=== PATIENT | female | born 2000 | race Caucasian/White ===

== ENCOUNTER 2024-12-27 16:09 | Outpatient (CLI) | payer OTHER, SELFPAY ==
--- NOTE | ~2024-12-27 | XR_ITS ---
XR knee RT 3V 12/27/2024 16:29 Indication: Right knee pain for 2 months Procedure: 3 views right knee Comparison: No prior studies for comparison. Findings: There is irregular vertically oriented lucency in the anterior proximal aspect of the tibia on the lateral view. This is not confirmed on the AP or oblique view. No joint effusion. Impression: 1: Irregular vertical lucency anterior aspect of the tibia on the lateral view only. Nondisplaced fra cture not excluded. Recommend further evaluation with CT or MRI of the knee. Reviewed, dictated and finalized at location A. Impression: 1: Irregular vertical lucency anterior aspect of the tibia on the lateral view only. Nondisplaced fracture not excluded. Recommend further evaluation with CT or MRI of the knee.
--- OUTSIDE RECORDS SUMMARY | 2024-12-27 16:13 | XMS_ITS | Data Portability ---
Author Organization [place] [employer], Main Office Address [address] [place] [address] Care Team Providers Care Information Technology Administrator Name Role Phone KAPIL ALBA Primary Care Provider KAPIL ALBA Referring Provider [phone] Assessment No assessment recorded. Plan of Treatment Reminders Order Date Submit Date Provider Last Modified By Organization Details Last Modified Time Details Appointments None recorded. Lab lipid panel, serum [address] (Lab), [address] [place] [address], [id number], 5 09:15:09 CMP, serum or plasma [address] (Lab), [address] [place] [address], [id number], 5 09:15:09 HbA1c (hemoglobi n A1c), blood [address] (Lab), [address] [place] [address], [address], 5 09:15:08 vitamin D, 25-hydroxy , total, serum [address] (Lab), [address] [place] [address], [address], 5 09:15:08 vitamin B12 + folate, serum or blood [address] (Lab), [address] [place] [address], [address], 5 09:15:08 CBC w/ auto diff [address] (Lab), [facility] [address], [place], [address], 5 09:15:08 TSH + free T4, serum [address] (Lab), [facility] [address], [place], [address], 5 09:15:08 Referral orthopedic surgeon referral - Please call patient to schedule an appointmen t. Thank you. 2024 025 [facility], [address], [place], [address], 14:29:25 Procedures None recorded. Surgeries None recorded. Imaging None recorded. Medication Orders None recorded. Patient TargetsNo targets recorded. Patient InstructionsNo instructions recorded. Reason for Referral Orthopedic Surgeon Referral for Pain of right knee joint Please call patient to schedule an appointment. Thank you. Referring Physician: Kapil Alba, Family Medicine, Encounter Date: 12/07/2024 Problems Name Problem SNOMED Code Status Onset Date Resolution Date Notes Provider Name and Address Organization Details Recorded Time Pain of right knee joint 236733662438778 Active 2024 REMIGIO Moreno [address], [place], [address], [employer] 14:42:26 Fatigue 85691764 Active 2024 REMIGIO Moreno [address], [place], [address], [employer] 14:47:21 Obese class I 627406625744380 Active 2024 REMIGIO Moreno [address], [place], [address], [employer] 14:48:50 Problem Notes None recorded. Medical Equipment None Reported. Allergies No known drug allergies Medications Name Sig Start Date Stop Date Status Note LastModified by Organization Details LastModified Time Zyrtec 10 mg tablet Take 1 tablet every day by oral route as directed. 024 active Not Available Not Available Not Avai lable Vitals Date Recorded Body height Body mass index (BMI) Body weight Body temperature Oxygen saturation Oxygen saturation in Arterial blood by Pulse oximetry Heart rate Systolic blood pressure Diastolic blood pressure Provider Name and Address Organization Details Last Updated DateTime 167.64 cm 33.8 kg/m2 11604.5 1 g 98.2 [degF] 98 % 98 % 90 /min 120 mm[Hg] 70 mm[Hg] Yaneli Lujan RN [facility] [employer] [facility] 14:14:47 Social History Question Answer Notes LastModified by [employer] Details LastModified Time Tobacco Smoking Status Never Smoker Yaneli Lujan RN [facility], [facility] [employer] [facility] 12/07/2024 14:21:09 What Is Your Level Of Caffeine Consumption? Occasional 60 Mg Of Caffeine Per Day [email or web address] Information not available 12/07/2024 Sex: Unknown Functional Status Question Answer Note LastModified by [employer] Details LastModified Time Do you use any illicit or recreational drugs? No [email or web address] Information not available 12/07/2024 Do you or have you ever used any other forms of tobacco or nicotine? No Information not available 12/07/2024 What is your level of alcohol consumption? None [email or web address] Information not available 12/07/2024 Mental Status None recorded. Family History Relationship Description Onset Age of this Age Resolved Age Notes LastModified by Organization Details LastModified Time Father Palpitations 16 [email or web address] Not tika ilable 12/07/2024 14:16:51 Father Diabetes mellitus [email or web address] Not available 12/07 14:18:00 Mother Essential hypertension [email or web address] Not available 14:17:33 Paternal Grandfather Renal cell carcinoma 68 [email or web address] Not available 12/07 14:18:49 Paternal Grandmother Malignant neoplasm of lung 63 64 [email or web address] Not available 12/07 14:19:49 Medical History No medical history recorded. Gynecological HistoryNo gynecological history recorded. Obstetrics History GPAL:G 0 P 0 0 0 0 Immunizations Vaccine Type Date Status Note Provider Nam e and Address Organization Details Recorded Time Hep B, adult 12/06/2024 completed Shirin De Souza RN [facility], [facility] [employer] [facility] 12/11/2024 13:20:28 Past Encounters Encounter ID Performer Location Encounter Start Date Encounter Closed Date Diagnosis/Indication Diagnosis SNOMED-CT Code Diagnosis ICD10 Code Diagnosis Note [id number] REMIGIO Moreno [facility] [address] [place] [phone] 12/07/2024 14:01:04 12/13/2024 16:14:06 General examination of patient 497975904 Z00.01 [facility] reviewedDi scussed diet and exercisePa tient questions answered Hepatitis B non-immune 875189529 Z78.9 Has completed 2 vaccines, needs 3rd and final Pain of ri ght knee joint 4862237202 [address]3966 M25.561 Positional shooting pains x 6 weeks Fatigue 01891299 R53.82 Family his tory of diabetes mellitus 242783886 Z83.3 Obese class I 2159295246 23450 E66.811 Health Concerns Section Related Observation LastModified by Organization Detai ls LastModified Time None Recorded Concern Status LastModified by Organization Details LastModified Time None Recorded Advance Directives Directive None Recorded Payers Encounter Date Sequence Insurance Name Policy Number Policy Self Covered Member ID Self Member ID Guarantor Name 12/07/2024 1 [facility] [id number] Yari Hendrix [id number] Yari Hendrix Notes Date Note Type Note Provider Name and Address Organization Details Recorded Time 5 text/html Yari Hendrix is a 24 year old female patient here today to establish care. 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 Concerns with right knee pain. She notes that she has no pain with walking but does have pain with going up and down stairs. She notes she gets quick stabbing pains. This occurred 6 weeks ago and she is not feeling better. Flu shot: OVID vaccines: x3Tdap: 2021HPV completedNegative Hep B titers, has had 2/3 vaccinesWWE: 2020Mammogram not indicatedColonoscopy not indicated REMIGIO Moreno [address], [facility] [address], [place], [address], [place] [facility] [place] [facility] 12/07/2024 15:31:16 OBGyn Episode No OBEpisode recorded.
== END 2024-12-27 16:10 | disposition home or self-care (01) ==
PROVIDERS: Visit Provider Orthopaedic Surgery
DX: M25.561 Pain in right knee (principal)
CPT/HCPCS: 73562

== ENCOUNTER 2025-01-02 10:50 | Outpatient (CLI) | payer OTHER, SELFPAY ==
--- NOTE | ~2025-01-02 | MR_ITS ---
MRI of the right knee Clinical history: Internal derangement Technique: Coronal proton density and proton density-weighted images, sagittal proton-density and T2 fat-sat images, and axial proton-density fat-saturated images were acquired. Findings: Anterior and posterior cruciate ligaments are intact. Medial collateral ligament and the la teral collateral ligament complex are intact. Popliteus tendon are intact. Medial and lateral menisci are intact, without evidence of tear. Articular cartilage is well preserved throughout the knee. Bone marrow signals are unremarkable. Extensor mechanism is intact. No significant joint effusion or Cates's cyst. Impression: No significant abnormality seen. Reviewed, dictated and finalized at location . Impression: No significant abnormality seen.
== END 2025-01-02 10:51 | disposition home or self-care (01) ==
LOC: GOSHIMG 10:50
PROVIDERS: PCP Orthopaedic Surgery; Visit Provider Orthopaedic Surgery
DX: M23.91 Unspecified internal derangement of right knee (principal)
CPT/HCPCS: 73721

== ENCOUNTER 2025-02-28 07:53 | Outpatient (CLI) | payer OTHER, SELFPAY ==
--- OUTSIDE RECORDS SUMMARY | 2025-02-28 07:57 | XMS_ITS | Clinical Summary ---
Author Organization [facility] Address [address] [place] [address] Care Team Providers Care Law Office Assistant Name Role Phone None, Provider MD Primary Care Provider Unavaila ble Allergies No known active allergies Medications cephALEXin 500 MG capsule 01/25/2022 Active Active Problems No known active problems Family History Medical History Relation Comments Diabetes Father Heart Disease Father Heart Disease Mother Hypertension Mother Relation Status Comments Father Alive Mother Alive Social History Tobacco Use Types Packs/Day Years Used Date Smoking Tobacco: Never Smokeless Tobacco: Never Alcohol Use Standard Drinks/Week Comments Never 0 (1 standard drink = 0.6 oz pur e alcohol) Comments No Sex and Gender Information Value Date Recorded Sex Assigned at Not on file Legal Sex Female 11:25 PM [employer] Gender Identity Not on file Sexual Orientation Not on file Last Filed Vital Signs Vital Sign Reading Time Taken Comments Blood Pressure 125/91 01/29/2022 11:00 AM CDT Pulse 96 01/29/2022 10:28 AM CDT Temperature 36.6 C (97.8 F) 01/29/2022 10:28 AM CDT Respiratory Rate 16 01/29/2022 10:28 AM CDT Oxygen Saturation 100% 01/29/2022 11:30 AM CDT Inhaled Oxygen Concentration - - Weight 86.2 kg (190 lb) 01/29/2022 10:28 AM CDT Height 167.6 cm (5' 6) 01/29/2022 10:28 AM CDT Body Mass Index 30.67 01/29/2022 10:28 AM CDT Plan of Treatment Health Maintenance Due Date Last Done Comments Annual Physical 2003 HPV Vaccines (2 - 3-dose series) 06/16/2015 05/19/2015 Hepatitis C 2018 DTaP, Tdap and Td Vaccines (7 - Td or Tdap) 03/27/2022 03/27/2012, 2006, 09/22/2001, Additional history exists COVID-19 Vaccine (3 - season) 2024 11/18/2021, 10/23/2020 Cervical Cancer Screening Pap Smear (Age 21 to 29) Every 3 Years 11/11/2025 11/11/2022 Cervical Cancer Screening 11/11/2025 Hepatitis B Vaccines Completed 09/22/2001, 2000, 2000 Meningococcal Vaccine Completed 05/16/2018, 012 Chlamydia Screening Females ages 16-24 Discontinued 11/11/2022 Meningococcal B Vaccine Aged Out No l onger eligible based on patient's age to complete this topic Pneumococcal Vaccine: Pediatrics (0 to 5 Years) and At-Risk Patients (6 to 49 Years) Aged Out No longer eligible based on patient's age to complete this topic RSV Immunizations Under 20 Months Aged Out No longer eligible based on patient's age to complete this topic Procedures Procedure Name Priority Date/Time Associated Diagnosis Comments CHLAMYDIA GC RNA Routine 11/11/2022 1:50 PM CDT Encounter for screening for infections with a predominantly sexual mode of transmission CYTOPATH CERV/VAG THIN LAYER Routine 11/11/2022 9:11 AM CDT from Last 3 Months or Most Recently Relevant to Health Maintenance Results * CHLAMYDIA GC RNA (11/11/2022 1:50 PM CDT) SPECIMEN CERVICAL 11/11/2022 4:07 PM CDT [facility] CHLAMYDIA RNA TMA NEGATIVE NEGATIVE 023 1:34 PM CDT [facility] Comment:PERFORMED BY NUCLEIC ACID AMPLIFICATION N.GONORRHOEAE RNA TMA NEGATIVE NEGATIVE 11/12/2022 1:34 PM CDT [facility] Comment:PERFORMED BY NUCLEIC ACID AMPLIFICATION CERVICAL 11/11/2022 1:50 PM CDT us Delilah Miller MD MICROBIOLOGY - GENERAL ORDERABLE S Final Result [facility] [address] [place] [address], [facility] [address] [place] [address], [id number] * Cytopath Cerv/Vag Thin Layer (11/11/2022 9:11 AM CDT) THIN PREP PAP [facility] [address] [place] [address] Department of Pathology Pathology Report CERVICAL/VAGINAL PAP SMEAR REPORT Name: YARI HENDRIX Age: 10 2000 (Age: 22) Location: [facility] Sex: F Collected Date: 11/11/2022 [facility] #: [id number] Date Received: 11/15/2022 Date Reported: 11/15/2022 Provider: DELILAH MILLER MD [facility] KALINA RASMUSSEN MD INTERPRETATION CERVICAL/ENDOCERVI JACKSON: SATISFACTORY FOR EVALUATION. ENDOCERVICAL/TRANS FORMATION ZONE COMPONENT PRESENT. NEGATIVE FOR INTRAEPITHELIAL LESION OR MALIGNANCY. Electronically Signed Out By HECTOR MORRIS(ASCP) CLINICAL HISTORY Z11.3 PAP AND TITLE I PARAPROFESSIONAL SURGICAL HISTORY-NA ThinPrep Pap Test with HR HPV testing in patient > 21 years with ASC-US diagnosis. Date of Last Menstrual Period: NA Menstrual Status: Regular SPECIMEN SUBMITTED CERVICAL/ENDOCERVI JACKSON Specimen Received:1 Thin Prep Vial, Image Assisted Pap (SMD) Please note: The Pap smear is not a diagnostic test. It is a screening test. Negative results on combined screening (Pap test and HPV-DNA) have a high negative predictive value (99.1-100 percent) for cervical cancer. The pap test is not effective in detecting cervical adenocarcinoma. [facility] 11/11/2022 9:11 AM CDT 11/15/2022 9:11 AM CDT Comment:CERVICAL/ENDOCERVICA L Delilah Miller MD PATHOLOGY/CYTOLOGY ORDERABLES Fi nal Result [facility] [address] [place] [address], from Last 3 Months or Most Recently Relevant to Health Maintenance Insurance Care Teams Law Office Assistant Relationship Specialty Start Date End Date None, Provider, PCP - General 01/29/22
[2025-02-28 08:10] LABS: Hematocrit 37.1 % (37.0-47.0); Hemoglobin 12.4 g/dL (12.0-15.0); Immature Granulocyte Percent A 0.4 % (0-0.5); Lymphocytes Absolute Auto 2.68 K/mm3 (0.9-3.2); Mean Corpuscular HGB Conc 33.4 g/dl (32-36); Mean Corpuscular Hemoglobin 30.2 pg (26-34); Mean Corpuscular Volume 90.5 fl (80-100); Nucleated Red Blood Cells Absolute Auto 0.000 K/mm3 (0.0-0.012); Nucleated Red Blood Cells Perc 0.0 % (0.0-0.2); Platelet Count Result 257 k/mm3 (150-375); Red Blood Count 4.10 M/mm3 (4.2-5.4); White Blood Count 8.6 K/mm3 (4.5-10.0)
[2025-02-28 08:25] LABS: Hemoglobin A1C 5.2 % (<5.7)
[2025-02-28 08:31] LABS: Alanine Aminotransferase 21 U/L (6-35); Albumin Level 4.1 g/dL (3.5-5.1); Alkaline Phosphatase 87 U/L (38-126); Anion Gap 7 mmol/L (4-12); Aspartate Amino Transferase 28 U/L (14-36); Bilirubin,Total 0.7 mg/dL (0.2-1.3); Blood Urea Nitrogen 15 mg/dL (7-17); Calcium 9.2 mg/dL (8.4-10.2); Carbon Dioxide 24 mmol/L (22-30); Chloride 108 mmol/L (98-107); Cholesterol 197 mg/dL (0-200); Estimated Glomerular Filt Rate > 60; Glucose 103 mg/dL (65-110); HDL Direct 54 mg/dL; Potassium 4.0 mmol/L (3.4-5.0); Sodium 139 mmol/L (137-145); Total Protein 7.4 g/dL (6.3-8.2); Triglycerides 66 mg/dL (<150)
[2025-02-28 09:00] LABS: Free T4 Free Thyroxine 1.15 ng/dL (0.78-2.19)
[2025-02-28 09:08] LABS: Thyroid Stimulating Hormone 2.780 uIU/mL (0.465-4.680)
[2025-02-28 09:44] LABS: Vitamin B12 561.0 pg/mL (239-931)
== END 2025-02-28 07:54 | disposition home or self-care (01) ==
DX: E66.811 Obesity, class 1 (principal); R53.82 Chronic fatigue, unspecified; Z83.3 Family history of diabetes mellitus
CPT/HCPCS: 36415; 80053; 80061; 82306; 82607; 82746; 83036; 84439; 84443; 85025

== ENCOUNTER 2025-02-28 14:45 | Outpatient (RCR) | payer OTHER, SELFPAY ==
--- NOTE | 2025-01-30 13:35 | OPREHPOC ---
Outpatient Therapy Plan of Care This is a Multidisciplinary Plan of Care that may contain components documented by all disciplines (PT, OT, and ST.) PT Problem 1 PT Problem #1 Knowledge Deficit PT Goal 1 Goal / Goal Update *independent with HEP Target Visit 8 PT Problem 2 PT Problem #2 Pain PT Goal 1 Goal / Goal Update 1* pt report pain rating of 3/10 at worst 2* pt report walking tolerance of 20 minutes Target Visit 8 PT Problem 3 PT Problem #3 Impaired Strength PT Goal 1 Goal / Goal Update increase strength of R hip and knee to 4+/5, for stability to knee joint PT Problem 4 PT Problem #4 Impaired Functional Mobility PT Goal 1 Goal / Goal Update 1* pt ambulate with good swing though on R LE and normal gait pattern 2* pt report she is NOT using the crutches for ambulation Target Visit 8 PT Problem 5 PT Problem #5 Impaired Flexibility PT Goal 1 Goal / Goal Update increase hamstring length to decrease pull on posterior knee joint: R supine SLR stretch to 65' Target Visit 8
--- NOTE | 2025-01-30 13:36 | PTOPEVAL1 ---
Assessment and note entered by Clary Pope, PT Evaluation Information Assessment Status Evaluation ICD-10 Condition Codes (PT) Pain in right knee M25.561 Onset October 19, 2024 Subjective Information playing with niece, going to squat down, twisted knee and landed onto R knee, then progressive worse pain, did not ease up; in November, worse pain and started using crutches had x ray with ? 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 MRI was negative. 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 LE functional scale rating of 39% limitation in activity level. She is not working due to knee pain. With the evaluation: R hip and knee ROM is WNL, with decreased strength of R LE; pain is increased in sitting and knee extension at end ROM . Skilled PT services are indicated for modalities to decrease pain, therapeutic exercises to increase strength and education for HEP, pain control and mobility/gait pattern. Plan of Care Interventions Electrical Stimulation,Hot Pack/Cold Pack,Manual Therapy,Neuro Re-education,Patient/Caregiver Education,Therapeutic Activities,Therapeutic Exercise,Ultrasound,Other Other Interventions taping PT Services Indicated Yes Treatment Frequency and 1-2x/wk for 8 visits Duration These treatments will address the objective and functional deficits as defined above. The patient will be advanced safely and appropriately in order for the patient to progress towards his/her prior level of function. Additional exercises will be introduced and as well as a comprehensive home exercise program upon discharge, if needed, ?to ensure carryover of functional gains achieved in the clinic. This treatment plan has been reviewed and agreement upon by the patient.
--- NOTE | 2025-01-30 13:50 | PCPTNOTE ---
pt was 10 minutes late for initial eval.
--- NOTE | 2025-02-22 15:19 | PCPTNOTE ---
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
--- NOTE | 2025-02-28 15:28 | OPREHPOC ---
Outpatient Therapy Plan of Care This is a Multidisciplinary Plan of Care that may contain components documented by all disciplines (PT, OT, and ST.) PT Problem 1 PT Problem #1 Knowledge Deficit PT Goal 1 Goal / Goal Update *independent with HEP 02-28-25 d/c goal met Target Visit 8 Progress Met PT Problem 2 PT Problem #2 Pain PT Goal 1 Goal / Goal Update 1* pt report pain rating of 3/10 at worst 2* pt report walking tolerance of 20 minutes 02-28-25 d/c goals met Target Visit 8 Progress Met PT Problem 3 PT Problem #3 Impaired Strength PT Goal 1 Goal / Goal Update increase strength of R hip and knee to 4+/5, for stability to knee joint 02-28-25 d/c goal met Progress Met PT Problem 4 PT Problem #4 Impaired Functional Mobility PT Goal 1 Goal / Goal Update 1* pt ambulate with good swing though on R LE and normal gait pattern 2* pt report she is NOT using the crutches for ambulation 02-28-25 d/c goals met Target Visit 8 Progress Met PT Problem 5 PT Problem #5 Impaired Flexibility PT Goal 1 Goal / Goal Update increase hamstring length to decrease pull on posterior knee joint: R supine SLR stretch to 65' 02-28-25 d/c goal met Target Visit 8 Progress Met
--- NOTE | 2025-02-28 15:28 | PTOPDC ---
Assessment and note entered by Clary Pope, PT Assessment Status Discharge ICD-10 Condition Codes (PT) Pain in right knee M25.561 Onset October 19, 2024 Subjective Information doing well, knee does not hurt, but pops sometimes; doing OK on stairs; have been doing the exercises; have returned to work and doing 8 hour shifts, without knee hurting; Reported Pain Level Pain Score 0: Self Report Additional Pain Score Comments pain range in the past week 0-3/10; with exercises/activity reported pinch at distal patellar area with slight flexion and weight bearing after sitting and driving about one hour, then get out of the car, knee is sore and tender Assessment PT Clinical Summary Yari has received 7 PT sessions. She has returned to working 8 hours. She has improved in all areas: with today's assessment: pain range of 0-3/10 at distal patella; 3% limitation with LE functional scale rating; increase strength of R hip and knee; hamstring length with supine SLR to 70'; education completed for HEP and posture/body mechanics. The goals were achieved. Discharge PT services. She is to continue with HEP. Plan of Care PT Services Indicated No
== END 2025-02-28 16:53 | disposition home or self-care (01) ==
LOC: ANHPT 14:45
PROVIDERS: Visit Provider Orthopaedic Surgery
DX: M25.561 Pain in right knee (principal)
CPT/HCPCS: 97110; 97116; 97161; 97530